=== PATIENT | female | born 1990 | race Caucasian/White ===

== ENCOUNTER 2018-01-03 16:28 | Observation (INO) ==
[2018-01-03 17:46] LABS: Basophils % 0.2 %; Eosinophils % 0.4 %; Hematocrit 37.2 % (35.3-44.9); Hemoglobin 13.1 g/dL (11.5-15.4); Immature Granulocytes % 0.3 % (0-4); Lymphocytes # 2.4 K/mcL (0.6-4.6); Lymphocytes % 24.2 %; Mean Corpuscular HGB Conc 35.2 g/dL (31.6-35.5); Mean Corpuscular Volume 87.9 fL (83.0-100.0); Mean Platelet Volume 11.4 fL (9.4-12.4); Monocytes # 0.7 K/mcL (0.0-1.3); Monocytes % 7.1 %; Neutrophils # 6.6 K/mcL (1.6-8.9); Platelet Count 183 K/mcL (140-400); Red Blood Count 4.23 M/mcL (3.82-4.97); Red Cell Distribution Width 13.2 % (11.5-14.5); Segmented Neutrophils % 67.8 %
[2018-01-03 17:52] LABS: Alanine Aminotransferase 9 Units/L (7-52); Aspartate Amino Transferase 17 Units/L (13-39); BUN/Creatinine Ratio 14 (6-26); Blood Urea Nitrogen 10 mg/dL (6-20); Lactate Dehydrogenase 184 Units/L (140-271); Uric Acid 6.7 mg/dL (2.3-7.6); eGFR For Non-African Americans > 60 (> 60)
[2018-01-03 18:15] LABS: Amphetamine Screen,Urine Negative ng/mL (Cutoff=1000); Barbiturate Screen,Urine Negative ng/mL (Cutoff=200); Benzodiazepines Screen,Urine Negative ng/mL (Cutoff=200); Cannabinoid Screen,Urine Negative ng/mL (Cutoff = 50); Cocaine Screen,Urine Negative ng/mL (Cutoff= 300); Creatinine,Urine 47 mg/dL; Opiate Screen,Urine Negative ng/mL (Cutoff=300); Phencyclidine Screen,Urine Negative ng/mL (Cutoff=25); Protein/Creatinine Ratio,Urine 0.09 mg/mg (0.00-0.20)
--- NOTE | 2018-01-03 18:28 | OB/GYN Progress Note ---
Date of Encounter: 01/03/18 Time of Encounter: 18:26 - Assessment and Plan (1) 37 weeks gestation of Current Visit: Yes Status: Acute (2) Elevated blood pressure affecting in third trimester, antepartum Current Visit: Yes Status: Acute Patient normotensive in triage, BP is 127/68, 130/76, 127/70. All PIH labs normal. Discharged home with PIH, labor and when to return to triage precautions. Patient verbalizes understanding (3) NST (non-stress test) reactive Current Visit: Yes Status: Acute Baseline 120 Subjective - Subjective Interval history: 37+2 weeks gestation presents to triage with complaints of headache earlier in the day and it elevated blood pressure taken at home. With a history of preeclampsia resulting and a in her first . Reports good movement, denies contractions, vaginal bleeding, leaking of fluid, visual changes, or right upper quadrant pain. Antepartum ROS: movement normal, no loss of fluid, no vaginal bleeding, no contractions Objective - Vital Signs Vital Signs: Intake and Output 01/03/18 01/03/18 01/03/18 07:59 15:59 23:59 Other: Weight 80 kg Patient Weight 01/03/18 23:59 Weight 80 kg - Exam FHR: auscultation normal FHR comments: Reactive NST, baseline 120 Abdomen: Present: soft, gravid Comments: +1 DTRs negative clonus
== END 2018-01-03 18:35 | disposition home or self-care (01) ==
LOC: 1NENULAB
PROVIDERS: ADMIT Obstetrics & Gynecology; ATTEND Obstetrics & Gynecology

== ENCOUNTER 2018-01-21 07:57 | Inpatient (IN) ==
[2018-01-21] MEDS ORDERED: Famotidine 20 MG/2 ML VIAL IVP PRN (08:23)
[2018-01-21] MEDS ORDERED: Naloxone 0.4 MG/ML INJ IVP PRN ×2 (08:23→13:50)
[2018-01-21] MEDS ORDERED: Ringers Solution, Lactated 1,000 ML IVC SCH (08:30)
[2018-01-21] MEDS ORDERED: Oxytocin 20 units/ LR 1000 mL 20 UNIT/1,000 ML BAG IVC SCH (09:00)
--- NOTE | 2018-01-21 09:11 | OB/GYN History & Physical ---
Date of Encounter: 01/21/18 Time of Encounter: 09:00 Assessment and Plan (1) and not yet delivered in third trimester Current visit: Yes Status: Acute (2) 39 weeks gestation of Current visit: Yes Status: Acute (3) Desires vaginal after trial Current visit: Yes Status: Acute We will place a Siddiqi catheter and do low dose Pitocin until she can be internalized plan is to anticipate normal spontaneous vaginal delivery. She has declined transfer and declined section. History of Present Illness HPI: Ms. Dos Santos is a 27 year old female 2 para 1 at 39-6/7 weeks who presents today for induction of labor. Patient is wanting to do a trial of labor after section. Patient had a section for preeclampsia with her first baby and did not want another we did inform the patient that we do not offer vaginal deliveries after section but she is refusing transfer to another institution and she is refusing a section at this time. She does understand that the baby is in distress and she will be willing to the section but she is wanting to do a trial of labor after section. Patient did sign the consent for this and does understand the potential risk of uterine rupture both maternal and mortality and is willing to try. Her course has been unremarkable she did recently have an ultrasound which placed the baby at 3391 g which was the 76th percentile with an amniotic fluid index of 10 cm. Patient's blood pressures have been stable throughout the and she has shown no signs of preeclampsia with this . GBS is negative, she is Rh-, rubella positive, Varicella positive Past Med Surg Social Fam HX - Past Medical History Source: patient, old records reviewed Medical history: migraine Psychiatric history: no psych history - Past Surgical History Surgical History: , cholecystectomy Additional surgical history: left elbow surgery, in 2016 - Social History Smoking Status: Never smoker Smokeless Tobacco Status: No Alcohol use: none Drug use: none Occupational status: employed Current living situation: Home - Independent Activity Level: Independent ambulation Recent Out of Country Travel Within the Last 8 Weeks: No Exposure or Possible Exposure to Illness During Travel: No - Family History Mother Adopted: No Family Member Ethnicity: Non- Living Status: Still Living Hx Family Cardiac Disorders: Yes (htn) Hx Family Respiratory Disorders: No Hx Family Cancer: No Hx Family GI Disorders: No Hx Family Endocrine Disorder: No Hx Family Neuromuscular Disorders: No Hx Family Neurologic Disorders: No Hx Family HEENT Disorders: No Hx Family Autoimmune Disorders: No - Additional Family History Additional family history: Family history noncontributory Obstetrical History - Pregnancies : 2 Para: 1 Livin Medications and Allergies 19 Tablet 1 tab PO DAILY 04/01/16 [History] 3 Allergy/AdvReac Type Severity Reaction Status Date / Time No Known Allergies Allergy Verified 04/01/16 12:50 Review of System OB All systems PM: reviewed and no additional remarkable complaints except as stated Exam - Constitutional Constitutional: well developed, well nourished, no acute distress, average body habitus - HEENT HEENT: EOMI, PERRL, Mucus Membranes Moist - Neck Neck exam: full ROM - Lungs Respiratory exam: CTAB - Cardiovascular Cardiovascular exam: RRR - Abdomen Abdomen: Present: bowel sounds normal, gravid ( heart tones 140s reactive no contractions noted.) - Vagina Vagina: Present: normal moisture - Cervix Dilation: 2 Effacement: 90 Station: +1 (Siddiqi catheter placed 30 mL balloon inflated) Results All other labs normal. - VTE Reasons for not Prescribing Prophylaxis: Treatment not Indicated - Low risk for VTE
[2018-01-21 10:02] LABS: Basophils % 0.2 %; Eosinophils % 0.2 %; Hematocrit 40.1 % (35.3-44.9); Hemoglobin 14.2 g/dL (11.5-15.4); Immature Granulocytes % 0.3 % (0-4); Lymphocytes # 2.4 K/mcL (0.6-4.6); Mean Corpuscular HGB Conc 35.4 g/dL (31.6-35.5); Mean Corpuscular Hemoglobin 31.6 pg (28.0-33.3); Mean Corpuscular Volume 89.3 fL (83.0-100.0); Mean Platelet Volume 11.8 fL (9.4-12.4); Monocytes # 0.7 K/mcL (0.0-1.3); Monocytes % 7.3 %; Neutrophils # 6.1 K/mcL (1.6-8.9); Platelet Count 187 K/mcL (140-400); Red Blood Count 4.49 M/mcL (3.82-4.97); Red Cell Distribution Width 13.3 % (11.5-14.5)
--- NOTE | 2018-01-21 10:58 | Anesthesia Evaluation PreOp ---
Date of Encounter: 01/21/18 Time of Encounter: 10:52 - Past History Planned Operation: JORJE Cardiac History: Denies any Significant Hx Pulmonary History: Denies Any Significant HX ENERGY DIRECTOR History: Denies Any Significant HX Other Medical History: Denies Any Significant HX Anesthesia History: No Prior Anesthetic Complications, Past Anesthesia ( Previous csection for failure to progress, lap cholecystectomy without complication.) : Yes Alcohol Use: none Drug use: none Medications and Allergies 19 Tablet 1 tab PO DAILY 04/01/16 [History] 3 Allergy/AdvReac Type Severity Reaction Status Date / Time No Known Allergies Allergy Verified 04/01/16 12:50 - Meds/Allergy Pre-op Review Medications Reviewed: Yes Allergies Reviewed: Yes Beta Blockers on Current Med List: Yes Anesthesia Results - Labs 01/21/18 08:40 Anesthesia Exam T 98.9 BP 154/86 P 65 R 16 Height: 5'6" Weight: 79.9kg NPO (# of Hours): 12 Pain Scale: 0 Pain Scale Used: Numeric (1 - 10) - HEENT Pupil (Motor): Pupils equal Mallampati: II Teeth: Normal Oral Opening: Greater than 3 - ENERGY DIRECTOR LOC: Oriented ENERGY DIRECTOR Motor: Normal RUE, Normal LUE, Normal RLE, Normal LLE, Normal Face ENERGY DIRECTOR Sensory: Normal: RUE, LUE, RLE, LLE, Face - Cardiac Rhythm: Regular Murmur: None JVD: No Carotid Bruit: No - Pulmonary Breath Sounds: bilateral Clear Respiratory Effort: Symmetrical Anesthesia Assess/Plan ASA Score: 2 Modified [place] Scale for Level of Consciousness: Cooperative, oriented, and tranquil Anesthetic Plan: Regional Autologous Blood: Yes Monitoring Plan: Standard Monitors Recovery Plan: Other
[2018-01-21] MEDS ORDERED: Ondansetron 4 MG/2 ML VIAL IVP PRN (13:50)
[2018-01-21] MEDS ORDERED: Bupivacaine-MPF 0.25% 10 ML VIAL EP ONE (13:50)
[2018-01-21] MEDS ORDERED: *HR* FentaNYL (PF) 100 MCG/2 ML VIAL EP ONE (13:50)
[2018-01-21] MEDS ORDERED: EPHEDrine 50 MG/ML VIAL IVP PRN (13:50)
[2018-01-21] MEDS ORDERED: Bupivacaine-MPF 0.25% 10 ML VIAL ONE (13:57)
[2018-01-21] MEDS ORDERED: *HR* FentaNYL (PF) 100 MCG/2 ML VIAL ONE (13:57)
[2018-01-21] MEDS ORDERED: Lidocaine 1% 20 ML MDV ONE (13:57)
[2018-01-21] MEDS ORDERED: Epidural Premix (fent/bupiv) 110 ML EP SCH (14:00)
--- NOTE | 2018-01-21 15:03 | OB Labor Progress Note ---
Date of Encounter: 01/21/18 Time of Encounter: 15:02 Labor Progress Note - Subjective Subjective: Patient's comfortable after her epidural Siddiqi catheter is out - Cervix Cervix: 5/90/+1 AROM clear fluid - Heart Tones Heart Tones: heart tones 140s reactive - [place]: IUPC placed contractions are irregular every 2-5 minutes. - Plan Plan: We will continue to increase Pitocin and slowly plan is to anticipate vaginal delivery
--- NOTE | 2018-01-21 15:07 | Anesthesia Procedures ---
Date of Encounter: 01/21/18 Time of Encounter: 14:04 Procedures: Anesthesia - Epidural/Spinal Patient ID/Chart reviewed: Yes Patient examined: Yes OB Eval: Gestational age: 39.6 OB Eval: : 2 OB Eval: Hx Para: 1 OB Eval: Dilated at (cm): 4 OB Eval: Contractions: Non-stressed pattern Consent Obtained: Yes Supplemental Oxygen: None/Room Air Site Prep: Aseptic Technique, Sterile prep and drape, Povidone-Iodine 1% Patient position: upright Local Anesthetic: Lidocaine 1% Amount of Local Anesthetic used: 3 Touhy Needle Gauge: 18 Touhy Needle Depth (cm): 5 Catheter Depth at Skin (cm): 15 Test Dose (1.5% Lido + Epi): Volume given (mls): 3 Test Dose Result: Negative Loading Dose: 0.25% Marcaine (mls): 7 Loading Dose: Fentanyl (mcg): 100 Loading Dose Administered: Thru Catheter Infusion Med: 0.125% Bupivacaine w/ 2 mcg/ml Fentanyl Infusion Rate (mls/hr): [address]: Tegaderm, Tape Interspace Used: L4-L5 Loss of Resistance (THOMAS): Yes Blood: No CSF: No Paresthesia: No Procedure: JORJE placed 1st pass in upright position without any immediate noted complications. VSS and FHT stable throughout. Vitals + FHT's: 1404 BP 149/79 P 77 R 16 1428 BP 144/74 P 75 R 16 FHT 120s
[2018-01-21 16:22] LABS: Amphetamine Screen,Urine Negative ng/mL (Cutoff=1000); Barbiturate Screen,Urine Negative ng/mL (Cutoff=200); Benzodiazepines Screen,Urine Negative ng/mL (Cutoff=200); Cannabinoid Screen,Urine Negative ng/mL (Cutoff = 50); Cocaine Screen,Urine Negative ng/mL (Cutoff= 300); Opiate Screen,Urine Negative ng/mL (Cutoff=300); Phencyclidine Screen,Urine Negative ng/mL (Cutoff=25)
--- NOTE | 2018-01-21 17:10 | OB Labor Progress Note ---
Date of Encounter: 01/21/18 Time of Encounter: 17:09 Labor Progress Note - Subjective Subjective: Patient very comfortable not feeling any contractions - Cervix Cervix: 6/90/+1 - Heart Tones Heart Tones: heart tones 140s reactive - [place]: Contractions irregular every 2-5 minutes patient having coupling Pitocin at 8 milliunits - Plan Plan: We will continue to increase the Pitocin to break through the coupling. Plan is to anticipate vaginal delivery
[2018-01-21] MEDS ORDERED: Acetaminophen 325 MG TABLET PO ONE (19:55)
--- NOTE | 2018-01-21 20:17 | OB Labor Progress Note ---
Date of Encounter: 01/21/18 Time of Encounter: 20:15 Labor Progress Note - Subjective Subjective: Patient is still very comfortable still not feeling any contractions or pressure - Cervix Cervix: 6-7/90/+2 - Heart Tones Heart Tones: heart tones 140s reactive - [place]: Contractions every 2-4 minutes a regular still - Plan Plan: Continuing new increase in Pitocin per protocol until contractions adequate plan is to anticipate vaginal delivery
[2018-01-22] MEDS ORDERED: miSOPROStol 100 MCG TABLET RC STA (00:32)
--- NOTE | 2018-01-22 00:36 | OB/GYN Procedure Note ---
Delivery - Delivery Date: 01/22/18 Provider: Mookie Daniel Intrapartum events: none Delivery induction: AROM, oxytocin, valdivia Delivery monitor: external FHT, external uterine, internal uterine Anesthesia: epidural Quantitated Blood Loss: 300 - Infant (s) A Infant Delivery Date: 01/21/18 Infant Delivery Time: 23:57 Presentation: vertex Position: OSMIN Route of delivery: Gender: Female Viability: Viable Pounds: 7 Ounces: 13 Weight Gram: 3.54 kg at 1 minute: 9 at 5 mins: 9 Shoulder Dystocia: not encountered Specimens collected: cord blood Placenta: spontaneous Cord: 3 umbilical vessels - Repair Episiotomy: none Laceration Description: Periurethral, Perineal - 2nd Degree, Labial - Complications Delivery complications: none Delivery comments: Patient is a 27-year-old 2 para 1 at 39-6/7 weeks who presented to labor and delivery for a TOLAC. Patient had a previous section and was wanting to deliver vaginally she had made arrangements originally to deliver in [place] but with us offering locally she wanted to come here patient understood that there is a risk for uterine rupture and potential morbidity and mortality associated with this procedure and still wanted to proceed on. We did offer her a section which she declined and we opted to transfer to another institution and off this and she declined patient was afebrile probably catheter was placed and low-dose Pitocin was started and the catheter fell out she was 4 cm epidural was placed she was artificially ruptured and internalized. Pitocin was increased slowly until contractions were adequate patient continued to progress she became complete and pushed for sure. Of time delivering a viable female in right occiput anterior presentation at 2357. There was no nuchal cord, no meconium, the infant was bulb suctioned on the abdomen, Apgars were 9 at 1 minute, 9 at 5, weight was 7 lbs. 13 oz. Placenta was then delivered spontaneously with a three- vessel cord, frame carver spindle at [place], anesthesia epidural, estimated blood loss was 300 mL. Patient had a right periurethral left labial and a second-degree perineal laceration repaired with 3-0 Monocryl in usual fashion. Cervix and vagina was visualized intact. I did explore the uterine cavity scar was intact. Patient did have some continuous bleeding 600 g of Cytotec was placed rectally which did not control the bleeding. All needles lap and sponge counts were correct 3 she will be observed 2 hours before being taken the floor. - Disposition Mom disposition: stable in LDR [place] disposition: stable in LDR
[2018-01-22] MEDS ORDERED: Oxytocin 20 units/ LR 1000 mL 20 UNIT/1,000 ML BAG IVC SCH (03:13)
[2018-01-22] MEDS ORDERED: Acetaminophen 325 MG TABLET PO PRN (03:13)
[2018-01-22] MEDS ORDERED: Measles/Mumps/Rubella Vacc 0.5 ML VIAL SQ PRN (03:13)
[2018-01-22] MEDS ORDERED: D5% in Water 1,000 ML IVC ONE (04:36)
[2018-01-22 06:21] LABS: Basophils % 0.2 %; Hematocrit 32.6 % (35.3-44.9); Immature Granulocytes % 0.4 % (0-4); Lymphocytes # 1.8 K/mcL (0.6-4.6); Lymphocytes % 10.8 %; Mean Corpuscular Hemoglobin 31.1 pg (28.0-33.3); Mean Corpuscular Volume 88.8 fL (83.0-100.0); Mean Platelet Volume 11.1 fL (9.4-12.4); Monocytes # 1.1 K/mcL (0.0-1.3); Monocytes % 6.3 %; Neutrophils # 13.8 K/mcL (1.6-8.9); Platelet Count 139 K/mcL (140-400); Red Blood Count 3.67 M/mcL (3.82-4.97); Red Cell Distribution Width 13.2 % (11.5-14.5); Segmented Neutrophils % 82.3 %
[2018-01-22 06:34] LABS: Hemoglobin 11.4 g/dL (11.5-15.4)
[2018-01-22] MEDS ORDERED: Prenatal Vit/FA 1 EACH TABLET PO SCH (09:00)
[2018-01-22] MEDS ORDERED: Rho Immune Globulin 1,500 UNIT SYRINGE IM ONE (10:36)
--- NOTE | 2018-01-22 10:39 | OB/GYN Progress Note ---
Date of Encounter: 01/22/18 Time of Encounter: 10:37 - Assessment and Plan (1) , delivered Current Visit: Yes Status: Acute Continue current management 2. Plan to discharge tomorrow. 3. Patient is in agreement with this plan. Subjective - Subjective Principal diagnosis: Interval history: is sleeping and feeding well. Mother is passing urine without difficulty, passing flatus, no bowel movement yet Patient has no complaints, questions or concerns at this time. Patient reports: appetite normal, pain well controlled, ambulating normally, no dizzy ambulation, no nauseated [place]: doing well, nursing well Objective - Latest Vital Signs Latest vital signs: Vital Signs Temp Pulse Resp BP Pulse Ox 01/22/18 08:51 98.8 F 81 16 121/83 97 01/22/18 04:24 98.4 F 82 16 142/87 98 01/22/18 03:38 98.5 F 69 16 127/82 98 01/22/18 02:45 99.0 F 79 16 149/91 97 Intake and Output 01/21/18 01/22/18 01/22/18 23:59 07:59 15:59 Output Total 1000 / 1000 Balance -1000 / -1000 Output: Straight Cath 1000 / 1000 Other: Weight 77.8 kg Patient Weight 01/22/18 23:59 Weight 77.8 kg - Exam Lungs: bilateral: normal Chest: Normal S1, Normal S2 Extremities: Present: normal Abdomen: Present: normal appearance, soft. Absent: rigidity, distention, organomegaly, tenderness, bruits, mass Uterus: Present: normal, firm. Absent: tenderness Uterus Position: 1 Finger Below Umbilicus - Labs Labs: Laboratory Results - last 24 hr 01/21/18 01/22/18 01/22/18 08:23 00:45 05:55 WBC 16.8 H D RBC 3.67 L Hgb 11.4 L D Hct 32.6 L MCV 88.8 MCH 31.1 MCHC 35.0 RDW 13.2 Plt Count 139 L MPV 11.1 Immature Gran % 0.4 Seg Neutrophils % 82.3 Lymphocytes % 10.8 Monocytes % 6.3 Eosinophils % 0.0 Basophils % 0.2 Neutrophils # 13.8 H Lymphocytes # 1.8 Monocytes # 1.1 Eosinophils # 0.0 Basophils # 0.0 Urine Opiates Screen Negative Ur Barbiturates Screen Negative Ur Phencyclidine Scrn Negative Ur Amphetamines Screen Negative U Benzodiazepines Scrn Negative Urine Cocaine Screen Negative U Marijuana (THC) Screen Negative Ur Drug Screen Interp See Below Screen NEGATIVE Baby's Blood Type A RH POSITIVE Mother's Blood Type A RH NEGATIVE Rhogam Indicated YES Rhogam Req for Mother 1
[2018-01-22] MEDS: Ibuprofen 600 MG TABLET PO PRN ×2 (10:52→20:48)
[2018-01-22] MEDS: Prenatal Vit/FA 1 EACH TABLET PO SCH (10:52)
[2018-01-22] MEDS ORDERED: miSOPROStol 100 MCG TABLET PO ONE (11:36)
[2018-01-23 08:22] VITALS: BP 131/81
--- NOTE | 2018-01-23 09:30 | Discharge Summary ---
Date of Encounter: 01/23/18 Time of Encounter: 09:28 - Discharge Diagnosis (1) and not yet delivered in third trimester Priority: Secondary Status: Acute (2) 39 weeks gestation of Priority: Secondary Status: Acute (3) Desires vaginal after trial Priority: Secondary Status: Acute (4) , delivered Priority: Primary Status: Acute Comments: We will discharge home she will follow-up in 4 weeks - Discharge Medications Prescriptions: Ibuprofen [Motrin] 600 mg PO Q6HR PRN #30 tablet PRN Reason: Cramping Home Medications: 19 Tablet 1 tab PO DAILY 04/01/16 [History] Ibuprofen [Motrin] 600 mg PO Q6HR PRN #30 tablet 01/23/18 [Rx] Allergies/Adverse Reactions: 3 Allergy/AdvReac Type Severity Reaction Status Date / Time No Known Allergies Allergy Verified 04/01/16 12:50 Data Procedures and tests throughout hospitalization: Laboratory Tests 01/21/18 01/21/18 01/22/18 08:23 08:40 00:45 WBC 9.2 RBC 4.49 Hgb 14.2 Hct 40.1 MCV 89.3 MCH 31.6 MCHC 35.4 RDW 13.3 Plt Count 187 MPV 11.8 Immature Gran % 0.3 Seg Neutrophils % 66.0 Lymphocytes % 26.0 Monocytes % 7.3 Eosinophils % 0.2 Basophils % 0.2 Neutrophils # 6.1 Lymphocytes # 2.4 Monocytes # 0.7 Eosinophils # 0.0 Basophils # 0.0 Urine Opiates Screen Negative Ur Barbiturates Screen Negative Ur Phencyclidine Scrn Negative Ur Amphetamines Screen Negative U Benzodiazepines Scrn Negative Urine Cocaine Screen Negative U Marijuana (THC) Screen Negative Ur Drug Screen Interp See Below Screen NEGATIVE Baby's Blood Type A RH POSITIVE Mother's Blood Type A RH NEGATIVE Rhogam Indicated YES Rhogam Req for Mother 1 01/22/18 05:55 WBC 16.8 H D RBC 3.67 L Hgb 11.4 L D Hct 32.6 L MCV 88.8 MCH 31.1 MCHC 35.0 RDW 13.2 Plt Count 139 L MPV 11.1 Immature Gran % 0.4 Seg Neutrophils % 82.3 Lymphocytes % 10.8 Monocytes % 6.3 Eosinophils % 0.0 Basophils % 0.2 Neutrophils # 13.8 H Lymphocytes # 1.8 Monocytes # 1.1 Eosinophils # 0.0 Basophils # 0.0 Urine Opiates Screen Ur Barbiturates Screen Ur Phencyclidine Scrn Ur Amphetamines Screen U Benzodiazepines Scrn Urine Cocaine Screen U Marijuana (THC) Screen Ur Drug Screen Interp Screen Baby's Blood Type Mother's Blood Type Rhogam Indicated Rhogam Req for Mother Labs on day of discharge: Labs from last 24 hours 01/22/18 00:45 Screen NEGATIVE Baby's Blood Type A RH POSITIVE Mother's Blood Type A RH NEGATIVE Rhogam Indicated YES Rhogam Req for Mother 1 Date of admission: 01/21/18 07:57 Primary care physician: Nita Singh CNP Consults: 01/22/18 03:13 Consult to [facility] [CONS] Routine Comment: Vaginal delivery, consult needed Discharging clinician: Mookie Daniel Anticipated date of discharge: 01/23/18 - Patient Status Disposition: Home, Self-Care Condition: Good Functional capacity at discharge: independent ambulation Overall status at discharge: patient is progressing back to baseline - Discharge Instructions Follow Up With: Nita Singh CNP [Primary Care Provider] - Mookie Daniel DO [Partnered Physician] - - Diet and Activity Activity: increase activity as tolerated Diet: advance to your usual diet Hospital Course Reason for admission: induction of labor Delivery: other ( vaginal delivery) Episiotomy: none Laceration: 2nd degree, other Other procedures: none complications: none Discharge diagnosis: IUP at term delivered Hospital course: Patient is a 27-year-old female 2 para 1 at 39-6/7 weeks who presented for induction of labor. Patient had a previous section and wanted to have a trial of labor after section. Patient refused a section and refused transfer. We had given her permission to try and deliver vaginally with the understanding if she showed any signs of distress she will be taken back for an emergency section patient received a Siddiqi catheter and low-dose Pitocin once the catheter was out she received an epidural and then she was artificially ruptured and internalized Pitocin was slowly increased until she was having adequate contractions. Patient became complete and delivered vaginally without any complications patient's scar was elevated and noted to be intact patient's hospital course was unremarkable patient's diet was advanced bleeding slowed down after 24 hours and she was having minimal pain she was discharged home on hospital day #2 with a prescription for Motrin 600 mg and she will follow-up in the office in 4 weeks. Patient's condition at time of discharge was stable. Time Attestation: Total time spent providing and/or coordinating discharge services: Exam - Constitutional Vitals: Temp Pulse Resp BP Pulse Ox 98.1 F 82 16 131/81 98 01/23/18 08:21 01/23/18 08:21 01/23/18 08:21 01/23/18 08:21 01/23/18 08:21 General appearance IM: A&O X 3, pleasant, no acute distress - Respiratory Respiratory exam: Present: CTAB - Cardiovascular Cardiovascular exam IM: Present: RRR - GI/Abdominal GI/Abdominal exam IM: normal bowel sounds - Uterus Position: At Umbilicus
[2018-01-23] MEDS: Ibuprofen 600 MG TABLET PO PRN (10:44)
[2018-01-23] MEDS: Prenatal Vit/FA 1 EACH TABLET PO SCH (10:44)
== END 2018-01-23 11:37 | disposition home or self-care (01) | DRG 775 ==
LOC: 1NENULAB 07:57 → 1NENUOBS 01-22 03:13
PROVIDERS: ADMIT Obstetrics & Gynecology; ATTEND Obstetrics & Gynecology

== ENCOUNTER → 2020-02-19 15:00 | Observation (INO) ==
[2020-02-19 10:53] LABS: Basophils % 0.2 %; Eosinophils % 0.3 %; Hematocrit 41.1 % (35.3-44.9); Hemoglobin 13.9 g/dL (11.5-15.4); Immature Granulocytes % 0.3 % (0-4); Lymphocytes # 2.4 K/mcL (0.6-4.6); Mean Corpuscular HGB Conc 33.8 g/dL (31.6-35.5); Mean Corpuscular Hemoglobin 29.3 pg (28.0-33.3); Mean Corpuscular Volume 86.7 fL (83.0-100.0); Mean Platelet Volume 9.5 fL (9.4-12.4); Monocytes # 0.6 K/mcL (0.0-1.3); Monocytes % 5.6 %; Neutrophils # 7.1 K/mcL (1.6-8.9); Platelet Count 250 K/mcL (140-400); Red Blood Count 4.74 M/mcL (3.82-4.97); Red Cell Distribution Width 12.2 % (11.5-14.5); Segmented Neutrophils % 69.6 %; White Blood Count 10.2 K/mcL (4.3-11.1)
[~2020-02-19 15:00] MED LIST: *HR* FentaNYL (PF) 100 MCG/2 ML VIAL ONE; *HR* Midazolam HCl 2 MG/2 ML VIAL ONE; *HR* OxyCODONE Immed Rel 5 MG TABLET PO PRN; *HR* Promethazine 25 MG/ML VIAL IVP PRN; *HR* Propofol 200 MG/20 ML VIAL IVP ONE; Acetaminophen IV 1,000 MG/100 ML BAG ONE; CeFAZolin 2,000 MG/50 ML BAG IVPB ONE; Dexamethasone 4 MG/ML VIAL ONE; Ibuprofen 800 MG TABLET PO PRN; Ketorolac 30 MG/ML VIAL ONE; Lidocaine -MPF 2% 5 ML VIAL ONE; Methylergonovine 0.2 MG/ML AMPUL IM ONE; Ondansetron 4 MG/2 ML VIAL IVP ONE; Ondansetron 4 MG/2 ML VIAL ONE; Rho Immune Globulin 1,500 UNIT SYRINGE IM ONE; Ringers Solution, Lactated 1,000 ML IVC ONE; Ringers Solution, Lactated 1,000 ML ONE
[2020-02-19 15:25] VITALS: BP 114/66
== END | disposition home or self-care (01) ==
LOC: 1NENULAB
PROVIDERS: ADMIT Obstetrics & Gynecology; ATTEND Obstetrics & Gynecology

== ENCOUNTER 2021-05-21 20:35 | Observation (INO) ==
[2021-05-21 21:56] LABS: Bilirubin,Urine Negative (Negative); Blood,Urine Trace (Negative); Clarity,Urine Turbid (Clear); Color,Urine Yellow (Yellow); Glucose,Urine (UA) Normal (Normal); Ketones,Urine Trace mg/dL (Negative); Leukocyte Esterase,Urine Large (Negative); Nitrite,Urine Negative (Negative); Protein,Urine Trace mg/dL (Neg-Trace); Urobilinogen,Urine Normal (Normal)
[2021-05-21 21:58] LABS: Bacteria,Urine Few per hpf (None-Few); Mucus,Urine Few per lpf (None-Few); Squamous Epithelial Cell,Urine Many per hpf (None-Few); WBC,Urine 15-30 per hpf (0-3)
[2021-05-21 22:01] LABS: Basophils % 0.2 %; Eosinophils # 0.1 K/mcL (0.0-0.6); Eosinophils % 0.3 %; Hematocrit 42.5 % (35.3-44.9); Hemoglobin 14.1 g/dL (11.5-15.4); Immature Granulocytes % 0.4 % (0-4); Lymphocytes # 2.5 K/mcL (0.6-4.6); Lymphocytes % 11.2 %; Mean Corpuscular HGB Conc 33.2 g/dL (31.6-35.5); Mean Corpuscular Volume 87.4 fL (83.0-100.0); Mean Platelet Volume 10.5 fL (9.4-12.4); Monocytes # 0.9 K/mcL (0.0-1.3); Neutrophils # 18.3 K/mcL (1.6-8.9); Platelet Count 294 K/mcL (140-400); Red Blood Count 4.86 M/mcL (3.82-4.97); Red Cell Distribution Width 12.4 % (11.5-14.5); Segmented Neutrophils % 83.9 %; White Blood Count 21.9 K/mcL (4.3-11.1)
[2021-05-21 22:17] LABS: Alanine Aminotransferase 37 Units/L (7-52); Albumin 5.1 g/dL (3.5-5.7); Alkaline Phosphatase 47 Units/L (34-104); Aspartate Amino Transferase 22 Units/L (13-39); BUN/Creatinine Ratio 14 (6-26); Bilirubin,Direct 0.1 mg/dL (0.0-0.2); Bilirubin,Indirect 0.4 mg/dL (0.0-1.0); Bilirubin,Total 0.5 mg/dL (0.3-1.0); Blood Urea Nitrogen 11 mg/dL (6-20); Calcium 10.7 mg/dL (8.6-10.3); Carbon Dioxide 23 mEq/L (23-29); Chloride 102 mEq/L (98-107); Globulin 2.6 g/dL (2.4-3.5); Glucose 126 mg/dL (70-105); Lipase 24 Units/L (11-82); Osmolality,Calculated 283 (280-300); Potassium 3.6 mEq/L (3.5-5.1); Sodium 136 mEq/L (136-145); Total Protein 7.7 g/dL (6.4-8.9); eGFR For African Americans > 60 (> 60); eGFR For Non-African Americans > 60 (> 60)
[2021-05-21] MEDS ORDERED: Metoclopramide 10 MG/2 ML VIAL IVP ONE (22:33)
[2021-05-21] MEDS ORDERED: Morphine Sulfate 2 MG/ML SYRINGE IVP STA ×3 (22:33→23:57)
[2021-05-21] MEDS ORDERED: 0.9 % Sodium Chloride 1,000 ML IVC ONE (22:34)
[2021-05-21] MEDS ORDERED: Ketorolac 30 MG/ML VIAL IVP STA (22:40)
[2021-05-21] MEDS ORDERED: cefTRIAXone 1,000 MG in Water for inj. (sterile) 10 ML IVP ONE (23:57)
[2021-05-22] MEDS ORDERED: Ketorolac 30 MG/ML VIAL IVP STA (03:32)
[2021-05-22] MEDS ORDERED: cefTRIAXone 1,000 MG in Water for inj. (sterile) 10 ML IVP ONE (06:09)
[2021-05-22] MEDS ORDERED: Melatonin 3 MG TABLET PO PRN (08:50)
[2021-05-22] MEDS ORDERED: Acetaminophen 325 MG TABLET PO PRN (08:50)
[2021-05-22] MEDS ORDERED: Naloxone 0.4 MG/ML INJ IVP PRN (08:50)
[2021-05-22] MEDS: Ringers Solution, Lactated 1,000 ML IVC SCH ×2 (09:39→16:26)
[2021-05-22] MEDS: 0.9 % Sodium Chloride 1,000 ML IVC SCH ×2 (10:14→15:25)
[2021-05-22] MEDS: Ondansetron 4 MG/2 ML VIAL IVP PRN ×2 (13:29→23:49)
[2021-05-22] MEDS: *HR* HYDROcodone/Acet 5/325 mg TABLET PO PRN ×2 (18:33→23:48)
[2021-05-23] MEDS: 0.9 % Sodium Chloride 1,000 ML IVC SCH ×2 (00:34→10:02)
[2021-05-23 03:14] LABS: Hematocrit 36.8 % (35.3-44.9); Mean Corpuscular HGB Conc 32.9 g/dL (31.6-35.5); Mean Corpuscular Hemoglobin 29.4 pg (28.0-33.3); Mean Corpuscular Volume 89.3 fL (83.0-100.0); Mean Platelet Volume 10.6 fL (9.4-12.4); Platelet Count 179 K/mcL (140-400); Red Blood Count 4.12 M/mcL (3.82-4.97); Red Cell Distribution Width 12.6 % (11.5-14.5); White Blood Count 11.4 K/mcL (4.3-11.1)
[2021-05-23 03:15] LABS: Hemoglobin 12.1 g/dL (11.5-15.4)
[2021-05-23 03:34] LABS: BUN/Creatinine Ratio 9 (6-26); Blood Urea Nitrogen 8 mg/dL (6-20); Calcium 9.1 mg/dL (8.6-10.3); Carbon Dioxide 22 mEq/L (23-29); Chloride 107 mEq/L (98-107); Glucose 96 mg/dL (70-105); Magnesium 1.9 mg/dL (1.6-2.6); Osmolality,Calculated 282 (280-300); Phosphorous 2.8 mg/dL (2.7-4.5); Potassium 3.5 mEq/L (3.5-5.1); Sodium 137 mEq/L (136-145); eGFR For African Americans > 60 (> 60); eGFR For Non-African Americans > 60 (> 60)
[2021-05-23] MEDS: Ondansetron 4 MG/2 ML VIAL IVP PRN (07:35)
[2021-05-23] MEDS ORDERED: *HR* HYDROmorphone (PF) 1 MG/ML SYRINGE IVP ONE (07:45)
[2021-05-23] MEDS ORDERED: cefTRIAXone 1,000 MG in 0.9 % Sodium Chloride Mini Bag 100 ML IVP SCH (09:00)
[2021-05-23] MEDS ORDERED: *HR* OxyCODONE/APAP 7.5/325 TABLET PO PRN (09:04)
[2021-05-23 10:31] VITALS: TEMP 98.3; O2SAT 98
[2021-05-23 14:39] VITALS: BP 129/85; PULSE 71
== END 2021-05-23 17:46 | disposition home or self-care (01) ==
LOC: EMEROOARM 20:35 → 3BNU 20:35 → SUATTDRO 05-22 06:34 → 3BNU 05-22 08:07
PROVIDERS: ADMIT Internal Medicine; ATTEND Registered Nurse

== ENCOUNTER 2021-12-27 07:46 | Inpatient (IN) ==
[2021-12-27] MEDS ORDERED: *HR* Nalbuphine 10 MG/ML AMPUL IV PRN (08:03)
[2021-12-27] MEDS ORDERED: Naloxone 0.4 MG/ML INJ IVP PRN (08:03)
[2021-12-27] MEDS ORDERED: Famotidine 20 MG/2 ML VIAL IVP PRN (08:03)
[2021-12-27] MEDS ORDERED: Metoclopramide 10 MG/2 ML VIAL IVP PRN (08:03)
[2021-12-27] MEDS ORDERED: Azithromycin 500 MG in 0.9 % Sodium Chloride 250 ML IVPB PRN (08:09)
[2021-12-27] MEDS ORDERED: Ondansetron 4 MG/2 ML VIAL IVP PRN (08:09)
[2021-12-27] MEDS ORDERED: EPHEDrine 50 MG/ML VIAL IVP PRN (08:11)
[2021-12-27] MEDS ORDERED: Oxytocin 30 UNIT/503 ML BAG IVC SCH (08:15)
[2021-12-27] MEDS: Epidural Premix (fent/bupiv) 110 ML EP SCH ×3 (08:23→21:57)
[2021-12-27 08:38] LABS: Basophils % 0.2 %; Eosinophils % 0.4 %; Hematocrit 35.8 % (35.3-44.9); Hemoglobin 12.3 g/dL (11.5-15.4); Immature Granulocytes % 0.3 % (0-4); Lymphocytes # 1.8 K/mcL (0.6-4.6); Lymphocytes % 19.2 %; Mean Corpuscular HGB Conc 34.4 g/dL (31.6-35.5); Mean Corpuscular Hemoglobin 30.8 pg (28.0-33.3); Mean Corpuscular Volume 89.5 fL (83.0-100.0); Mean Platelet Volume 10.8 fL (9.4-12.4); Monocytes # 0.4 K/mcL (0.0-1.3); Monocytes % 4.7 %; Neutrophils # 6.9 K/mcL (1.6-8.9); Platelet Count 180 K/mcL (140-400); Segmented Neutrophils % 75.2 %; White Blood Count 9.2 K/mcL (4.3-11.1)
[2021-12-27 08:44] LABS: Creatinine,Urine 170 mg/dL; Protein/Creatinine Ratio,Urine 0.12 mg/mg (0.00-0.20)
[2021-12-27] MEDS: Ringers Solution, Lactated 1,000 ML IVC SCH ×3 (08:45→18:45)
[2021-12-27 08:57] LABS: Alanine Aminotransferase 12 Units/L (7-52); Aspartate Amino Transferase 15 Units/L (13-39); BUN/Creatinine Ratio 16 (6-26); Blood Urea Nitrogen 10 mg/dL (6-20); Lactate Dehydrogenase 121 Units/L (140-271); eGFR For African Americans > 60 (> 60); eGFR For Non-African Americans > 60 (> 60)
[2021-12-27 12:51] LABS: Amphetamine Screen,Urine Negative ng/mL (Cutoff=1000); Barbiturate Screen,Urine Negative ng/mL (Cutoff=200); Benzodiazepines Screen,Urine Negative ng/mL (Cutoff=200); Cannabinoid Screen,Urine Negative ng/mL (Cutoff = 50); Cocaine Screen,Urine Negative ng/mL (Cutoff= 300); Opiate Screen,Urine Negative ng/mL (Cutoff=300); Phencyclidine Screen,Urine Negative ng/mL (Cutoff=25)
[2021-12-28] MEDS ORDERED: Lidocaine/EPI 1:200k 2% PF 20 ML VIAL ONE (02:24)
[2021-12-28] MEDS ORDERED: *HR* FentaNYL (PF) 100 MCG/2 ML VIAL ONE (02:24)
[2021-12-28] MEDS ORDERED: Sodium Bicarbonate 50 MEQ/50 ML VIAL ONE (02:24)
[2021-12-28] MEDS ORDERED: Ringers Solution, Lactated 1,000 ML ONE (02:25)
[2021-12-28] MEDS ORDERED: Ketorolac 30 MG/ML VIAL ONE (02:34)
[2021-12-28] MEDS ORDERED: Ondansetron 4 MG/2 ML VIAL ONE (02:34)
[2021-12-28] MEDS ORDERED: *HR* Oxytocin 10 UNIT/ML VIAL ONE (02:35)
[2021-12-28] MEDS ORDERED: *HR* Morphine Sulfate/PF 10 MG/10 ML AMPUL ONE (02:37)
[2021-12-28] MEDS ORDERED: ceFAZolin 2,000 MG in 0.9 % Sodium Chloride 100 ML IVPB ONE (02:37)
[2021-12-28] MEDS ORDERED: dexmedeTOMIDine in 0.9 % NaCL 80 MCG/20 ML MLS ONE (03:13)
[2021-12-28] MEDS ORDERED: Oxytocin 30 UNIT/503 ML BAG IVC SCH (06:26)
[2021-12-28] MEDS ORDERED: Ondansetron 4 MG/2 ML VIAL IVP PRN (06:26)
[2021-12-28] MEDS ORDERED: *HR* OxyCODONE Immed Rel 5 MG TABLET PO PRN (06:26)
[2021-12-28] MEDS ORDERED: Metoclopramide 10 MG/2 ML VIAL IVP PRN (06:26)
[2021-12-28] MEDS ORDERED: Simethicone 80 MG TAB.CHEW PO PRN (06:26)
[2021-12-28] MEDS ORDERED: Ringers Solution, Lactated 1,000 ML IVC SCH (06:26)
[2021-12-28] MEDS ORDERED: Naloxone 0.4 MG/ML INJ IVP PRN (06:26)
[2021-12-28] MEDS ORDERED: Rho Immune Globulin 1,500 UNIT SYRINGE IM ONE ×2 (06:26→15:30)
[2021-12-28] MEDS: cephALEXin 500 MG CAPSULE PO SCH ×3 (08:41→21:17)
[2021-12-28] MEDS: metroNIDAZOLE 500 MG TABLET PO SCH ×3 (08:41→21:17)
[2021-12-28] MEDS: Prenatal Vit/FA 1 EACH TABLET PO SCH (08:41)
[2021-12-28] MEDS: Acetaminophen 325 MG TABLET PO SCH ×2 (08:41→21:17)
[2021-12-28] MEDS: Ibuprofen 600 MG TABLET PO SCH ×3 (08:42→21:15)
[2021-12-29] MEDS: Ibuprofen 600 MG TABLET PO SCH ×2 (04:14→10:21)
[2021-12-29] MEDS: Acetaminophen 325 MG TABLET PO SCH ×2 (04:14→10:21)
[2021-12-29 05:17] VITALS: O2SAT 97
[2021-12-29 05:54] LABS: Basophils % 0.2 %; Eosinophils % 0.3 %; Hematocrit 31.4 % (35.3-44.9); Immature Granulocytes % 0.3 % (0-4); Lymphocytes # 2.1 K/mcL (0.6-4.6); Lymphocytes % 19.3 %; Mean Corpuscular HGB Conc 32.8 g/dL (31.6-35.5); Mean Corpuscular Volume 91.5 fL (83.0-100.0); Mean Platelet Volume 10.9 fL (9.4-12.4); Monocytes # 0.9 K/mcL (0.0-1.3); Monocytes % 7.9 %; Platelet Count 164 K/mcL (140-400); Red Blood Count 3.43 M/mcL (3.82-4.97); Red Cell Distribution Width 13.2 % (11.5-14.5); White Blood Count 11.1 K/mcL (4.3-11.1)
[2021-12-29 05:59] LABS: Hemoglobin 10.3 g/dL (11.5-15.4)
[2021-12-29 07:10] VITALS: BP 111/70; PULSE 79; TEMP 98
[2021-12-29] MEDS: cephALEXin 500 MG CAPSULE PO SCH ×2 (09:15→15:14)
[2021-12-29] MEDS: Prenatal Vit/FA 1 EACH TABLET PO SCH (09:15)
[2021-12-29] MEDS: metroNIDAZOLE 500 MG TABLET PO SCH ×2 (09:15→15:14)
== END 2021-12-29 16:00 | disposition home or self-care (01) | DRG 787 ==
LOC: 1NENULAB 07:46 → 1NENUOBS 12-28 06:26
PROVIDERS: ADMIT Obstetrics & Gynecology; ATTEND Obstetrics & Gynecology